=== PATIENT | female | born 1985 | race Caucasian/White ===

== ENCOUNTER 2018-06-25 17:10 | Inpatient (IN) | payer OTHER ==
[~2018-06-25] VITALS: Ht 162.6 cm; Wt 79.8 kg
[2018-06-25] MEDS ORDERED: RINGERS SOLUTION,LACTATED 1,000 ML IV PRN (18:27)
[2018-06-25] MEDS ORDERED: OXYTOCIN 30 UNITS/LACT RINGERS 500 ML IV ONE (18:27)
[2018-06-25] MEDS ORDERED: METOCLOPRAMIDE HCL 5 MG/ML 2 ML VIAL IVP PRN (18:30)
[2018-06-25] MEDS ORDERED: LIDOCAINE/PF 1% 30 ML VIAL INJ PRN (18:30)
[2018-06-25] MEDS ORDERED: CITRIC ACID/SODIUM CITRATE 30 ML SOLUTION UDCUP PO PRN (18:30)
[2018-06-25 18:45] VITALS: BP 108/71
[2018-06-25 19:58] LABS: BASOPHILS % (AUTO) 0.4 % (0.0-2.0); EOSINOPHILS % (AUTO) 0.9 % (1.0-6.0); HEMATOCRIT 40.9 % (36-46); HEMOGLOBIN 13.8 g/dL (12.0-16.0); LYMPHOCYTES # (AUTO) 2.2 K/uL (1.0-4.8); LYMPHOCYTES % (AUTO) 25.2 % (22.0-44.0); MEAN CORPUSCULAR HEMOGLOBIN 28.1 pg (26.0-34.0); MEAN CORPUSCULAR HGB CONC 33.8 G/dL (31.0-37.0); MEAN CORPUSCULAR VOLUME 83 fL (80-100); MONOCYTES # (AUTO) 0.6 K/uL (0.1-1.0); MONOCYTES % (AUTO) 6.9 % (2.0-9.0); NEUTROPHILS # (AUTO) 5.9 K/uL (1.8-7.7); NEUTROPHILS % (AUTO) 66.6 % (40.0-70.0); PLATELET COUNT (AUTO) 225 K/uL (150-450); RED BLOOD CELL COUNT(AUTO) 4.92 MIL/uL (4.00-5.20); RED CELL DISTRIBUTION WIDTH 15.5 % (11.5-14.5)
[2018-06-25] MEDS ORDERED: OXYGEN THERAPY IH SCH (20:00)
[2018-06-25] MEDS: RINGERS SOLUTION,LACTATED 1,000 ML IV SCH (20:19)
[2018-06-25] MEDS ORDERED: DINOPROSTONE 10 MG VAGINAL SUPPOSITORY VG ONE (20:30)
[2018-06-26] MEDS: FentaNYL CITRATE-PF 100 MCG/2 ML VIAL IVP PRN ×2 (02:00→02:07)
[2018-06-26] MEDS: RINGERS SOLUTION,LACTATED 1,000 ML IV SCH ×4 (03:30→22:53)
[2018-06-26] MEDS ORDERED: BUTORPHANOL TARTRATE 2 MG/ML VIAL IVP PRN (06:00)
[2018-06-26] MEDS ORDERED: ROPIVACAINE HCL/PF 0.2% 100 ML ED ONE ×3 (06:24→19:11)
[2018-06-26] MEDS ORDERED: ROPIVACAINE HCL ED PRN (06:47)
[2018-06-26] MEDS ORDERED: FENTANYL CITRATE ED PRN (06:47)
[2018-06-26] MEDS ORDERED: ONDANSETRON HCL 4 MG/2 ML VIAL IVP PRN (07:00)
[2018-06-26] MEDS ORDERED: DiphenhydrAMINE HCL 50 MG/ML VIAL IVP PRN (07:00)
[2018-06-26] MEDS ORDERED: -PHARMACY NOTE- MISC ONE (08:30)
[2018-06-26] MEDS ORDERED: OXYTOCIN 30 UNITS/LACT RINGERS 500 ML IV PRN (09:54)
[2018-06-27] MEDS: RINGERS SOLUTION,LACTATED 1,000 ML IV SCH (03:45)
[2018-06-27] MEDS ORDERED: ROPIVACAINE HCL/PF 0.2% 100 ML ED ONE (04:41)
[2018-06-27] MEDS ORDERED: OXYTOCIN 30 UNITS/LACT RINGERS 500 ML IV ONE (10:59)
[2018-06-27] MEDS ORDERED: LIDOCAINE/PF 1% 30 ML VIAL INJ PRN (11:00)
[2018-06-27] MEDS ORDERED: GLYCERIN/WITCH HAZEL LEAF 40 PADS JAR TP PRN (11:00)
[2018-06-27] MEDS ORDERED: OxyCODONE HCL/ACETAMINOPHEN 5-325 MG TABLET PO PRN ×2 (11:00)
[2018-06-27] MEDS ORDERED: LANOLIN 7 GM OINTMENT TP PRN (11:00)
[2018-06-27] MEDS ORDERED: BENZOCAINE 20%/MENTHOL 56 GM SPRAY CANISTER TP PRN (11:00)
[2018-06-27] MEDS: IBUPROFEN 800 MG TABLET PO PRN ×2 (11:28→21:38)
[2018-06-27] MEDS: MAGNESIUM HYDROXIDE SUSPENSION 30 ML UDCUP PO PRN (21:37)
[2018-06-28 06:25] LABS: BASOPHILS % (AUTO) 0.6 % (0.0-2.0); EOSINOPHILS % (AUTO) 1.1 % (1.0-6.0); HEMATOCRIT 35.5 % (36-46); HEMOGLOBIN 12.2 g/dL (12.0-16.0); LYMPHOCYTES % (AUTO) 13.2 % (22.0-44.0); MEAN CORPUSCULAR HEMOGLOBIN 28.5 pg (26.0-34.0); MEAN CORPUSCULAR HGB CONC 34.3 G/dL (31.0-37.0); MEAN CORPUSCULAR VOLUME 83 fL (80-100); MONOCYTES % (AUTO) 6.2 % (2.0-9.0); NEUTROPHILS # (AUTO) 12.1 K/uL (1.8-7.7); NEUTROPHILS % (AUTO) 78.9 % (40.0-70.0); PLATELET COUNT (AUTO)-OB 187 K/uL (150-450); RED BLOOD CELL COUNT(AUTO) 4.26 MIL/uL (4.00-5.20); RED CELL DISTRIBUTION WIDTH 15.8 % (11.5-14.5)
[2018-06-28] MEDS ORDERED: MEASLES/MUMPS/RUBELLA VACCINE, LIVE 0.5 ML/VIAL SQ ONE (06:45)
[2018-06-28] MEDS: MAGNESIUM HYDROXIDE SUSPENSION 30 ML UDCUP PO PRN (08:57)
[2018-06-28] MEDS: IBUPROFEN 800 MG TABLET PO PRN (08:58)
[2018-06-28] MEDS ORDERED: IBUP-2070 PO (12:09)
[2018-06-28] MEDS ORDERED: ACET-784 PO (12:12)
[2018-06-28] MEDS ORDERED: DSS100 PO (12:13)
== END 2018-06-28 13:20 | disposition home or self-care (01) | DRG 807 ==
LOC: 4S 17:10 → OBSVTOIN 17:10 → 4S 18:36 → UNDOADMOB 18:36
PROVIDERS: ADMIT Obstetrics & Gynecology; ATTEND Obstetrics & Gynecology
PROC: 10E0XZZ Delivery of Products of Conception, External Approach (ICD-10-PCS; principal; 2018-06-27)
PROC: 0W8NXZZ Division of Female Perineum, External Approach (ICD-10-PCS; 2018-06-27)
PROC: 3E0R3BZ Introduction of Anesthetic Agent into Spinal Canal, Percutaneous Approach (ICD-10-PCS; 2018-06-27)
PROC: 00HU33Z Insertion of Infusion Device into Spinal Canal, Percutaneous Approach (ICD-10-PCS; 2018-06-27)
DX: O77.0 Labor and delivery complicated by meconium in amniotic fluid (principal); Z37.0 Single live birth; Z3A.40 40 weeks gestation of pregnancy
CPT/HCPCS: 86850; 86900; 86901; 90686; 90707; J2590; J2795; J3010; J3490; J7120

== ENCOUNTER 2020-10-12 10:10 | Observation (INO) | payer OTHER ==
[~2020-10-12 10:10] MED LIST: ACET-784 PO; DSS100 PO; IBUP-2070 PO
[2020-10-12 10:25] VITALS: BP 119/66
[2020-10-12] MEDS ORDERED: PREN-217 PO (10:40)
== END 2020-10-12 12:25 | disposition home or self-care (01) ==
LOC: 4S 10:10
PROVIDERS: ADMIT Obstetrics & Gynecology; ATTEND Obstetrics & Gynecology
DX: O36.5930 Maternal care for other known or suspected poor fetal growth, third trimester, not applicable or unspecified (principal); Z3A.38 38 weeks gestation of pregnancy
CPT/HCPCS: 59025; 76811; 99219

== ENCOUNTER 2020-10-13 00:46 | Inpatient (IN) | payer OTHER ==
[~2020-10-13] VITALS: Ht 161 cm; Wt 70.3 kg
[~2020-10-13 00:46] MED LIST changes: +PREN-217 PO
[2020-10-13 00:59] VITALS: BP 117/69
[2020-10-13 01:41] LABS: COVID AG,FIA SOURCE NASOPHARYNGEAL
[2020-10-13] MEDS ORDERED: METOCLOPRAMIDE HCL 5 MG/ML 2 ML VIAL IVP PRN (02:15)
[2020-10-13] MEDS ORDERED: RINGERS SOLUTION,LACTATED 1,000 ML IV PRN (02:15)
[2020-10-13] MEDS ORDERED: METHYLERGONOVINE MALEATE 0.2 MG/ML VIAL IM PRN (02:15)
[2020-10-13] MEDS ORDERED: OXYTOCIN 30 UNITS/LACT RINGERS 500 ML IV ONE (02:15)
[2020-10-13] MEDS ORDERED: CITRIC ACID/SODIUM CITRATE 30 ML SOLUTION UDCUP PO PRN (02:15)
[2020-10-13 02:51] LABS: BASOPHILS % (AUTO) 0.3 % (0.0-2.0); EOSINOPHILS % (AUTO) 0.9 % (1.0-6.0); HEMATOCRIT 39.2 % (36-46); HEMOGLOBIN 12.9 g/dL (12.0-16.0); LYMPHOCYTES # (AUTO) 2.6 K/uL (1.0-4.8); LYMPHOCYTES % (AUTO) 28.5 % (22.0-44.0); MEAN CORPUSCULAR HEMOGLOBIN 28.1 pg (26.0-34.0); MEAN CORPUSCULAR VOLUME 85 fL (80-100); MONOCYTES # (AUTO) 0.6 K/uL (0.1-1.0); MONOCYTES % (AUTO) 6.8 % (2.0-9.0); NEUTROPHILS # (AUTO) 5.7 K/uL (1.8-7.7); NEUTROPHILS % (AUTO) 63.5 % (40.0-70.0); PLATELET COUNT (AUTO)-OB 220 K/uL (150-450); RED CELL DISTRIBUTION WIDTH 14.1 % (11.5-14.5)
[2020-10-13] MEDS ORDERED: MISOPROSTOL 25 MCG TABLET PO SCH (05:45)
[2020-10-13] MEDS: FentaNYL CITRATE PF 100 MCG/2 ML VIAL IVP PRN ×3 (05:58→07:35)
[2020-10-13] MEDS: RINGERS SOLUTION,LACTATED 1,000 ML IV SCH ×3 (06:01→14:30)
[2020-10-13] MEDS ORDERED: OXYGEN THERAPY IH SCH (08:00)
[2020-10-13] MEDS ORDERED: DiphenhydrAMINE HCL 50 MG/ML VIAL IVP PRN (09:00)
[2020-10-13] MEDS ORDERED: ROPIVACAINE HCL/PF 0.2% 100 ML ED PRN (09:00)
[2020-10-13] MEDS ORDERED: ONDANSETRON HCL 4 MG/2 ML VIAL IVP PRN (09:00)
[2020-10-13] MEDS ORDERED: ROPIVACAINE HCL/PF 0.2% 100 ML ED ONE (09:13)
[2020-10-13] MEDS ORDERED: OXYTOCIN 30 UNITS/LACT RINGERS 500 ML IV PRN (11:15)
[2020-10-13] MEDS ORDERED: SODIUM CHLORIDE 0.9% 1,000 ML IV ONE (14:00)
[2020-10-13] MEDS ORDERED: SODIUM CHLORIDE 0.9% 1,000 ML ONE (14:01)
[2020-10-13] MEDS ORDERED: BENZOCAINE 20%/MENTHOL 56 GM SPRAY CANISTER TP PRN (16:15)
[2020-10-13] MEDS ORDERED: OXYTOCIN 20 UNITS/LACT RINGERS 1,000 ML IV SCH (16:15)
[2020-10-13] MEDS ORDERED: GLYCERIN/WITCH HAZEL LEAF 40 PADS JAR TP PRN (16:15)
[2020-10-13] MEDS ORDERED: SENNA/DOCUSATE SODIUM 8.6-50 MG TABLET PO PRN (16:15)
[2020-10-13] MEDS ORDERED: MEASLES/MUMPS/RUBELLA VACCINE, LIVE 0.5 ML/VIAL SQ ONE (16:15)
[2020-10-13] MEDS ORDERED: ACETAMINOPHEN/CODEINE 300-30 MG TABLET PO PRN (16:15)
[2020-10-13] MEDS ORDERED: LANOLIN 7 GM OINTMENT TP PRN (16:15)
[2020-10-13] MEDS: IBUPROFEN 600 MG TABLET PO PRN (18:12)
[2020-10-13] MEDS: MAGNESIUM HYDROXIDE SUSPENSION 30 ML UDCUP PO PRN (20:48)
[2020-10-14 05:06] LABS: BASOPHILS % (AUTO) 0.8 % (0.0-2.0); EOSINOPHILS % (AUTO) 0.8 % (1.0-6.0); HEMATOCRIT 43.3 % (36-46); LYMPHOCYTES # (AUTO) 2.3 K/uL (1.0-4.8); LYMPHOCYTES % (AUTO) 19.4 % (22.0-44.0); MEAN CORPUSCULAR HEMOGLOBIN 27.8 pg (26.0-34.0); MEAN CORPUSCULAR HGB CONC 32.4 G/dL (31.0-37.0); MEAN CORPUSCULAR VOLUME 86 fL (80-100); MONOCYTES # (AUTO) 0.6 K/uL (0.1-1.0); MONOCYTES % (AUTO) 4.9 % (2.0-9.0); NEUTROPHILS # (AUTO) 8.7 K/uL (1.8-7.7); NEUTROPHILS % (AUTO) 74.1 % (40.0-70.0); PLATELET COUNT (AUTO)-OB 229 K/uL (150-450); RED BLOOD CELL COUNT(AUTO) 5.06 MIL/uL (4.00-5.20); RED CELL DISTRIBUTION WIDTH 14.7 % (11.5-14.5)
[2020-10-14] MEDS: MAGNESIUM HYDROXIDE SUSPENSION 30 ML UDCUP PO PRN (08:19)
[2020-10-14] MEDS: IBUPROFEN 600 MG TABLET PO PRN (08:19)
[2020-10-14] MEDS ORDERED: IBUP-2070 PO (11:22)
== END 2020-10-14 15:40 | disposition home or self-care (01) | DRG 807 ==
LOC: 4S 00:46 → OBSVTOIN 00:46
PROVIDERS: ADMIT Obstetrics & Gynecology; ATTEND Obstetrics & Gynecology
PROC: 10E0XZZ Delivery of Products of Conception, External Approach (ICD-10-PCS; principal; 2020-10-13)
PROC: 0KQM0ZZ Repair Perineum Muscle, Open Approach (ICD-10-PCS; 2020-10-13)
PROC: 0W8NXZZ Division of Female Perineum, External Approach (ICD-10-PCS; 2020-10-13)
PROC: 3E0R3BZ Introduction of Anesthetic Agent into Spinal Canal, Percutaneous Approach (ICD-10-PCS; 2020-10-13)
PROC: 00HU33Z Insertion of Infusion Device into Spinal Canal, Percutaneous Approach (ICD-10-PCS; 2020-10-13)
DX: O60.23X0 Term delivery with preterm labor, third trimester, not applicable or unspecified (principal); Z37.0 Single live birth; O69.81X0 Labor and delivery complicated by cord around neck, without compression, not applicable or unspecified; O70.1 Second degree perineal laceration during delivery; Z3A.38 38 weeks gestation of pregnancy; Z20.822 Contact with and (suspected) exposure to COVID-19
CPT/HCPCS: 86850; 86900; 86901; 87426; 89060; A9575; J2590; J2795; J3010; J7030; J7120